=== PATIENT | male | born 1990 | race Asian ===

== ENCOUNTER 2024-09-10 03:33 | Emergency (ER) | payer OTHER ==
[~2024-09-10] VITALS: Ht 167.6 cm; Wt 72.5 kg
[2024-09-10 03:44] VITALS: BP 116/71; RESP 17; O2SAT 98
[2024-09-10 03:47] VITALS: PULSE 71; O2SAT 100
[2024-09-10] MEDS: KETOROLAC 15MG/ML VIAL IM ONE (04:06)
[2024-09-10] MEDS ORDERED: AMOX1TAB16 MT (04:25)
[2024-09-10] MEDS: DEXAMETHASONE 10 MG/ML VIAL PO ONE (04:44)
== END 2024-09-10 04:56 | disposition home or self-care (01) ==
LOC: ER 03:33
DX: J36 Peritonsillar abscess (principal); Z79.52 Long term (current) use of systemic steroids
CPT/HCPCS: 99283; J1100